=== PATIENT | male | born 1945 | race Caucasian/White ===

== ENCOUNTER 2019-06-29 08:00 | Outpatient (RCR) | payer MEDICARE ==
[~2019-06-29 08:00] MED LIST: ALOGLIPTIN; ASPIR-LOW81 MG; ATORVASTATIN; CLARITIN; CLARITIN10 MG; COQ-10100 MG; FINASTERIDE5 MG PO; FLUTICASONE; FLUTICASONE IH; GLIPIZIDE5 MG PO; LISINOPRIL40 MG; METFORMIN; MULTI-VITAMIN1 EACH; SYNTHROID50 MCG PO; TAMSULOSIN HCL0.4 MG; TRULICITY IJ
== END 2019-06-30 ==
LOC: PT 08:00
PROVIDERS: ATTEND Specialist
DX: S46.021A Laceration of muscle(s) and tendon(s) of the rotator cuff of right shoulder, initial encounter (principal); M62.81 Muscle weakness (generalized); M25.511 Pain in right shoulder